=== PATIENT | female | born 1985 | race Caucasian/White ===

== ENCOUNTER 2017-04-03 09:03 | Outpatient (CLI) | payer OTHER ==
--- NOTE | 2017-04-03 15:10 | NM ---
HEPATOBILIARY SCAN: Date: 04/03/17 HISTORY: Right upper quadrant pain. No stones on ultrasound of 09/05/16. RADIOPHARMACEUTICAL: 5.3 mCi technetium-99m mebrofenin injected intravenously. FINDINGS: There is good tracer extraction by the liver with prompt excretion into the biliary tract and small bowel loops and normal filling of the gallbladder. The calculated gallbladder ejection fraction foll owing an oral fatty meal measures 31% (normal greater than 33%). IMPRESSION: Chronic acalculous cholecystitis/gallbladder dyskinesia. POS: [facility]
== END 2017-04-03 09:04 | disposition home or self-care (01) ==
LOC: NM 09:03
PROVIDERS: ATTEND Internal Medicine Gastroenterology
DX: K59.09 Other constipation (principal); K81.1 Chronic cholecystitis; K82.8 Other specified diseases of gallbladder; R10.11 Right upper quadrant pain
CPT/HCPCS: 78227; A9537

== ENCOUNTER 2017-04-26 16:14 | Emergency (ER) | payer OTHER ==
[2017-04-26] MEDS ORDERED: Metoclopramide HCl 10 MG/2 ML VIAL ONE (16:46)
[2017-04-26] MEDS ORDERED: Dexamethasone 4 mg/ml Vial ONE (16:46)
[2017-04-26] MEDS ORDERED: Ketorolac Tromethamine 30 MG/ML VIAL ONE (16:46)
[2017-04-26 16:54] LABS: #Eosinphils 0.2 thou/uL (0.0-0.7); #Monocytes 0.6 thou/uL (0.11-0.59); #Neutrophils 4.2 thou/uL (1.40-6.50); %Basophils 0.5 % (0.0-1.0); %Eosinophils 2.2 % (0.0-10.0); %Monocytes 8.1 % (0.0-10.0); Hematocrit 38.2 % (36.0-47.0); Mean Platelet Volume 7.3 fL (7.4-10.4); Red Blood Cell (RBC) Count 4.27 mill/uL (4.20-5.40)
[2017-04-26 17:14] LABS: Anion Gap 13 mmol/L (10-20); BUN (Urea Nitrogen) 9 mg/dL (7.0-18.7); Calc. Creatinine Clearance 0 mL/min (70-130); Calcium 9.5 mg/dL (7.8-10.44); Carbon Dioxide 26 mmol/L (22-29); Chloride 105 mmol/L (98-107); Estimated GFR-MDRD Greater than 90
== END 2017-04-26 17:54 | disposition home or self-care (01) ==
LOC: ERS 16:14
DX: G43.909 Migraine, unspecified, not intractable, without status migrainosus (principal); J45.909 Unspecified asthma, uncomplicated; I10 Essential (primary) hypertension
CPT/HCPCS: 80048; 85025; 96365; 96375; J1100; J1885; J2765

== ENCOUNTER 2017-05-03 13:56 | Emergency (ER) | payer OTHER ==
[2017-05-03] MEDS ORDERED: Meclizine HCl 25 MG TAB ONE (14:47)
--- NOTE | 2017-05-03 16:25 | CT ---
CT OF BRAIN PERFORMED WITHOUT CONTRAST ENHANCEMENT: Date: 05/03/17 HISTORY: Headache and dizziness. FINDINGS: The ventricular and cisternal system is within normal limits. There are no signs of intracerebral hem orrhage or extra-axial fluid collections. The mastoid air cells and visualized sinuses are clear. IMPRESSION: No acute intracranial abnormalities. POS: [facility]
== END 2017-05-03 16:29 | disposition home or self-care (01) ==
LOC: ERS 13:56
DX: G44.209 Tension-type headache, unspecified, not intractable (principal); F43.9 Reaction to severe stress, unspecified; J45.909 Unspecified asthma, uncomplicated; I10 Essential (primary) hypertension; K58.9 Irritable bowel syndrome, unspecified; Z79.899 Other long term (current) drug therapy
CPT/HCPCS: 70450

== ENCOUNTER 2017-09-17 07:24 | Emergency (ER) | payer OTHER ==
[2017-09-17 09:56] LABS: #Eosinphils 0.2 thou/uL (0.0-0.7); #Lymphocytes 1.8 thou/uL (1.20-3.40); #Monocytes 0.6 thou/uL (0.11-0.59); #Neutrophils 4.2 thou/uL (1.40-6.50); %Basophils 0.4 % (0.0-1.0); %Eosinophils 2.6 % (0.0-10.0); %Lymphocytes 26.7 % (21.0-51.0); %Monocytes 8.5 % (0.0-10.0); %Neutrophils 61.9 % (42.0-75.0); Hemoglobin 12.7 g/dL (12.0-16.0); Mean Corpuscular HGB CONC 34.9 g/dL (32.0-36.0); Mean Corpuscular Hemoglobin 30.8 pg (27.0-31.0); Mean Corpuscular Volume 88.1 fl (81.0-99.0); Platelet Count 212 thou/uL (130-400); RBC Distribution Width 11.2 % (11.5-14.5); Red Blood Cell (RBC) Count 4.13 mill/uL (4.20-5.40); White Blood Cell (WBC) Count 6.8 thou/uL (4.8-10.8)
--- NOTE | 2017-09-17 10:03 | RAD ---
TWO VIEWS OF THE LEFT HIP: COMPARISON: None. HISTORY: Left hip and leg pain. The patient possibly fell in April. FINDINGS: Two views of the left h8ip show no evidence of acute fracture or dislocation. No degenerative change s are seen. No soft tissue swelling is present. IMPRESSION: Unremarkable exam. POS: [facility]
[2017-09-17 10:17] LABS: Anion Gap 10 mmol/L (10-20); BUN (Urea Nitrogen) 10 mg/dL (7.0-18.7); Calc. Creatinine Clearance 0 mL/min (70-130); Calcium 9.2 mg/dL (7.8-10.44); Carbon Dioxide 27 mmol/L (22-29); Chloride 107 mmol/L (98-107); Estimated GFR-MDRD Greater than 90; Glucose 92 mg/dL (70-105); Potassium 3.6 mmol/L (3.5-5.1); Sodium 140 mmol/L (136-145)
[2017-09-17] MEDS ORDERED: Ibuprofen 200 MG TAB ONE (10:52)
--- NOTE | 2017-09-17 10:57 | ULT ---
NONVASCULAR LEFT LOWER EXTREMITY ULTRASOUND: Date: 09/17/17 INDICATION: Painful and palpable abnormality within the left superolateral thigh and hip region for 4-5 months. TECHNIQUE: Escobedo scale and color Doppler images were obtained of the palpable region of interest within the left superolateral thigh and hip region. FINDINGS: The submitted images demonstrate a 3.7 x 3.1 x 1.9 cm poorly defined hypoechoic mass. There is no ext ensive amount of internal vascular flow demonstrated on the Doppler images. No appreciable calcificat ions are evident. There is some heterogeneous echogenicity seen within the lesion itself. IMPRESSION: Poorly characterized hypoechoic mass within the left superolateral aspect of the left thigh. There is no internal vascular flow present; however, image resolution on today's examination is somewhat limi lucia. Differential considerations for this finding include an old resolved hematoma or possibly a soft tissue mass related to a sarcoma. MRI of the left hip with and without contrast is recommended for a dditional characterization. CODE T. POS: [facility]
--- NOTE | 2017-09-17 15:04 | MRI ---
MRI OF THE LEFT HIP WITH AND WITHOUT CONTRAST: INDICATION: Left hip pain and left hip soreness with concern for lesion within the left hip seen on a recent ultr asound dated 09/17/17. FINDINGS: A surface marker was placed in the palpable region of interest. No suspicious mass is evident. The lesion in question in the ultrasound is most likely corresponding to a fat signal intensity lesion me asuring approximately 3 x 4.9 cm consistent with a subcutaneous lipoma. There are no irregular featu res within this area. There is some mild tendinosis involving the left hip gluteus and minimus tendo ns with a small amount of trochanteric bursitis. No iliopsoas bursitis was evident. No joint effusi on is noted. There is some mild degenerative signal seen within the substance of the anterior superi or acetabulum without evidence of definite full-thickness tear. No paralabral cyst is noted. The vi sualized hamstring and rectus femoris origins appear within normal limits. The visualized aspects of the sciatic nerve are normal-appearing. No pathologically enlarged lymph nodes are evident. No abn ormal enhancement is demonstrated. IMPRESSION: 1. The mass seen on the ultrasound examination of the left hip likely reflects a subcutaneous lipoma . No suspicious features are related to this. 2. Mild left gluteus minimus and medias tendonosis and mild trochanteric bursitis. POS: [facility]
== END 2017-09-17 16:10 | disposition home or self-care (01) ==
LOC: ERS 07:24
DX: M70.62 Trochanteric bursitis, left hip (principal); D17.9 Benign lipomatous neoplasm, unspecified; I10 Essential (primary) hypertension; J45.909 Unspecified asthma, uncomplicated; Z79.899 Other long term (current) drug therapy
CPT/HCPCS: 36415; 36416; 76882; 80048; 85025

== ENCOUNTER 2017-10-02 08:46 | Outpatient (CLI) | payer OTHER ==
[2017-10-02 09:09] LABS: #Eosinphils 0.2 thou/uL (0.0-0.7); #Lymphocytes 2.5 thou/uL (1.20-3.40); #Monocytes 0.8 thou/uL (0.11-0.59); #Neutrophils 5.4 thou/uL (1.40-6.50); %Basophils 0.4 % (0.0-1.0); %Eosinophils 1.9 % (0.0-10.0); %Lymphocytes 27.9 % (21.0-51.0); %Monocytes 9.1 % (0.0-10.0); %Neutrophils 60.7 % (42.0-75.0); Hemoglobin 13.1 g/dL (12.0-16.0); Mean Corpuscular HGB CONC 34.9 g/dL (32.0-36.0); Mean Corpuscular Hemoglobin 30.5 pg (27.0-31.0); Mean Corpuscular Volume 87.3 fl (81.0-99.0); Mean Platelet Volume 6.8 fL (7.4-10.4); Platelet Count 222 thou/uL (130-400); RBC Distribution Width 11.1 % (11.5-14.5); Red Blood Cell (RBC) Count 4.29 mill/uL (4.20-5.40); White Blood Cell (WBC) Count 8.9 thou/uL (4.8-10.8)
[2017-10-02 09:30] LABS: Anion Gap 12 mmol/L (10-20); BUN (Urea Nitrogen) 22 mg/dL (7.0-18.7); Calc. Creatinine Clearance 0 mL/min (70-130); Calcium 9.5 mg/dL (7.8-10.44); Carbon Dioxide 27 mmol/L (22-29); Chloride 104 mmol/L (98-107); Estimated GFR-MDRD Greater than 90; Glucose 85 mg/dL (70-105); Potassium 3.6 mmol/L (3.5-5.1); Sodium 139 mmol/L (136-145)
[2017-10-02 09:40] LABS: BHCG - Serum Negative (NEGATIVE); Pregs Control Background? CLEAR/WHITE (CLR/WHITE); Pregs Control Bar Appear? YES (CONTROL BAR)
== END 2017-10-02 08:47 | disposition home or self-care (01) ==
LOC: LABBT 08:46
PROVIDERS: ATTEND Surgery
DX: Z01.812 Encounter for preprocedural laboratory examination (principal); D17.9 Benign lipomatous neoplasm, unspecified
CPT/HCPCS: 80048; 84703; 85025

== ENCOUNTER 2017-10-09 07:36 | Day surgery (SDC) | payer OTHER ==
[2017-10-02 09:04] VITALS: BMI 36.3
[2017-10-09] MEDS ORDERED: Fentanyl 100 MCG/2 ML VIAL ONE ×2 (08:11→10:45)
[2017-10-09] MEDS ORDERED: Promethazine HCl 25 MG/ML VIAL ONE (08:12)
[2017-10-09] MEDS ORDERED: Midazolam HCl 2 mg/2 ml Vial ONE (08:13)
[2017-10-09] MEDS ORDERED: Levofloxacin 500 mg/D5W 100 ml Premix Bag ONE (08:13)
[2017-10-09] MEDS ORDERED: Lidocaine 2% 10 ML INJ ONE (08:16)
[2017-10-09] MEDS ORDERED: Bupivacaine/Epinephrine 0.25% 30 ML VIAL ONE (08:16)
[2017-10-09] MEDS ORDERED: Bacitracin Zinc Ointment 30 gm TUBE ONE (08:16)
[2017-10-09] MEDS ORDERED: Morphine 4 MG/ML VIAL ONE (11:15)
[2017-10-09] MEDS ORDERED: HYDROcodone/Acetaminophen 5/325 mg Tablet ONE (11:45)
[2017-10-09] MEDS ORDERED: Lidocaine 1% PF 5 ML VIAL ONE (16:17)
[2017-10-09] MEDS ORDERED: PROPOFOL 200 MG/20 ML VIAL ONE (16:17)
[2017-10-09] MEDS ORDERED: ePHEDrine/0.9% NaCl/PF SYRINGE 50 mg/10 ml ONE (16:17)
[2017-10-09] MEDS ORDERED: Dexamethasone 20 MG/5 ML VIAL ONE (16:17)
--- NOTE | 2017-10-12 15:49 | PDOC.OP ---
Operative Note - Operative Note Operative Note: PROCEDURE: Excision of left hip lipoma DATE OF PROCEDURE: 10/08/2017 SURGEON: Luda Zaragoza M.D. PREOPERATIVE DIAGNOSES: Left hip lipoma POSTOPERATIVE DIAGNOSIS: Left hip lipoma HISTORY: Patient has a slowly growing mass on her left hip which is consistent with lipoma by preoperative imaging. She wishes to have it excised for symptomatic and diagnostic purposes. PROCEDURE IN DETAIL: After informed consent was obtained and appropriate preoperative antibiotics administered the patient was taken to the operating room where she was placed in supine position and anesthesia was administered. She was then positioned in the right lateral decubitus position and the location of the mass deep in the subcutaneous tissues confirmed by ultrasound. Local anesthesia was infused circumferentially for a field block and a longitudinal incision was made over the mass in the long axis. Dissection was carried down through the subcutaneous mass to a fatty growth which was encapsulated and had an appearance consistent with lipoma. This was dissected free circumferentially and off of the underlying greater trochanter and fascia. It was excised in its entirety and marked for orientation. Dimensions were 10 cm x 6 cm x 4 cm. Hemostasis was obtained by Bovie electrocautery. The wound was irrigated and hemostasis verified. Subcutaneous tissues were then reapproximated with multiple layers of 3-0 Monocryl sutures. The skin was then closed with a running 4-0 subcuticular Monocryl suture. Dermabond dressings were placed and once this was dry a pressure dressing was placed. The patient was then placed back in the supine position and extubated and taken to the recovery room in good condition. Estimated blood loss was minimal. There were no complications. Specimen is left hip lipoma.
== END 2017-10-09 13:00 | disposition home or self-care (01) ==
LOC: SDC 07:36
PROVIDERS: ATTEND Surgery
PROC: 0JBC0ZZ Excision of Pelvic Region Subcutaneous Tissue and Fascia, Open Approach (ICD-10-PCS; principal; 2017-10-09)
DX: D17.1 Benign lipomatous neoplasm of skin and subcutaneous tissue of trunk (principal); J45.909 Unspecified asthma, uncomplicated; Z88.0 Allergy status to penicillin; Z88.5 Allergy status to narcotic agent; Z91.040 Latex allergy status; Z98.890 Other specified postprocedural states
CPT/HCPCS: 88304; 96374; J1100; J1956; J2001; J2250; J2270; J2550; J2704; J3010

== ENCOUNTER 2018-01-22 21:52 | Emergency (ER) | payer OTHER ==
[2018-01-22 23:00] LABS: #Eosinphils 0.3 thou/uL (0.0-0.7); #Monocytes 0.5 thou/uL (0.11-0.59); #Neutrophils 4.9 thou/uL (1.40-6.50); %Basophils 0.4 % (0.0-1.0); %Eosinophils 3.3 % (0.0-10.0); %Neutrophils 63.4 % (42.0-75.0); Hemoglobin 13.4 g/dL (12.0-16.0); Mean Corpuscular Hemoglobin 31.3 pg (27.0-31.0); Mean Corpuscular Volume 86.9 fL (78.0-98.0); Platelet Count 207 thou/uL (130-400); RBC Distribution Width 11.4 % (11.5-14.5); Red Blood Cell (RBC) Count 4.29 mill/uL (4.20-5.40); White Blood Cell (WBC) Count 7.7 thou/uL (4.8-10.8)
--- NOTE | 2018-01-22 23:09 | RAD ---
TWO VIEWS CHEST: 01/22/18 COMPARISON: 11/18/16 HISTORY: Short of breath. FINDINGS: The heart and mediastinal contours are stable. Prominent epicardial fat pad noted in the right cardio phrenic angle, stable. No pneumothorax, pleural fluid, focal consolidation or alveolar edema. IMPRESSION: No acute findings - stable appearance of the chest. POS: [facility]
[2018-01-22 23:17] LABS: Glucose 103 mg/dL (70-105)
[2018-01-22 23:22] LABS: ALT (SGPT) 16 U/L (8-55); AST (SGOT) 11 U/L (5-34); Albumin 4.6 g/dL (3.5-5.0); Alkaline Phosphatase 82 U/L (40-150); Anion Gap 12 mmol/L (10-20); BUN (Urea Nitrogen) 10 mg/dL (7.0-18.7); Bilirubin, Total 0.5 mg/dL (0.2-1.2); Calc. Creatinine Clearance 0 mL/min (70-130); Calcium 9.5 mg/dL (7.8-10.44); Carbon Dioxide 26 mmol/L (22-29); Chloride 106 mmol/L (98-107); Estimated GFR-MDRD 84; Globulin 3.1 g/dL (2.4-3.5); Potassium 3.7 mmol/L (3.5-5.1); Protein, Total 7.7 g/dL (6.0-8.3); Sodium 140 mmol/L (136-145)
[2018-01-22 23:25] LABS: CKMB 0.6 ng/mL (0-6.6); Troponin I Less than 0.010 ng/mL (< 0.028)
[2018-01-23] MEDS ORDERED: Ibuprofen 200 MG TAB ONE (00:04)
[2018-01-23] MEDS ORDERED: predniSONE 20 MG TAB ONE (00:04)
== END 2018-01-23 00:48 | disposition home or self-care (01) ==
LOC: ERS 21:52
DX: J45.901 Unspecified asthma with (acute) exacerbation (principal); I10 Essential (primary) hypertension; Z79.899 Other long term (current) drug therapy
CPT/HCPCS: 36415; 71046; 80053; 82553; 84484; 85025; 85379; 93005; J7506; J7620

== ENCOUNTER 2018-08-21 14:36 | Emergency (ER) | payer OTHER ==
[2018-08-21] MEDS ORDERED: Dexamethasone 10 MG/ML VIAL ONE (15:27)
== END 2018-08-21 16:22 | disposition home or self-care (01) ==
LOC: ERS 14:36
DX: J02.9 Acute pharyngitis, unspecified (principal); H60.92 Unspecified otitis externa, left ear; I10 Essential (primary) hypertension; J45.909 Unspecified asthma, uncomplicated
CPT/HCPCS: 87081; 87430; 99283; J1100

== ENCOUNTER 2018-11-17 14:33 | Emergency (ER) | payer OTHER | END 2018-11-17 14:55 | disposition home or self-care (01) | LOC: ERS 14:33 | DX: Z20.3 Contact with and (suspected) exposure to rabies (principal) | CPT/HCPCS: 99281 ==

== ENCOUNTER 2021-03-16 23:23 | Emergency (ER) | payer OTHER | END 2021-03-17 00:09 | disposition home or self-care (01) | LOC: ERS 23:23 | DX: U07.1 COVID-19 (principal); I10 Essential (primary) hypertension; J45.909 Unspecified asthma, uncomplicated; F17.290 Nicotine dependence, other tobacco product, uncomplicated | CPT/HCPCS: 99281 ==

== ENCOUNTER 2021-07-19 14:51 | Outpatient (CLI) | payer OTHER ==
[2021-07-19 16:32] LABS: BHCG - Serum Negative (NEGATIVE); Pregs Control Background? CLEAR/WHITE (CLR/WHITE); Pregs Control Bar Appear? YES (CONTROL BAR)
[2021-07-20 00:27] LABS: SARS-CoV-2 PCR by NAA DETECTED (NotDetected)
== END 2021-07-19 14:52 | disposition home or self-care (01) ==
LOC: LABBT 14:51
PROVIDERS: ATTEND Surgery Surgery of the Hand
DX: U07.1 COVID-19 (principal); Z20.822 Contact with and (suspected) exposure to COVID-19
CPT/HCPCS: 84703; U0003; U0005

== ENCOUNTER 2021-12-04 23:54 | Emergency (ER) | payer OTHER ==
[2021-12-05] MEDS ORDERED: Lorazepam 1 MG TAB ONE (01:42)
[2021-12-05 01:59] LABS: #Eosinphils 0.2 thou/uL (0.0-0.7); #Lymphocytes 1.6 thou/uL (1.20-3.40); #Monocytes 0.6 thou/uL (0.11-0.59); #Neutrophils 12.4 thou/uL (1.40-6.50); %Basophils 0.2 % (0.0-1.0); %Eosinophils 1.6 % (0.0-10.0); %Lymphocytes 10.8 % (21.0-51.0); %Monocytes 3.9 % (0.0-10.0); %Neutrophils 83.5 % (42.0-75.0); Hemoglobin 13.6 g/dL (12.0-16.0); Mean Corpuscular HGB CONC 34.8 g/dL (32.0-36.0); Mean Corpuscular Hemoglobin 31.3 pg (27.0-31.0); Mean Corpuscular Volume 90.1 fL (78.0-98.0); Mean Platelet Volume 7.1 fL (7.4-10.4); Platelet Count 248 thou/uL (130-400); RBC Distribution Width 11.6 % (11.5-14.5); Red Blood Cell (RBC) Count 4.34 mill/uL (4.20-5.40); White Blood Cell (WBC) Count 14.9 thou/uL (4.8-10.8)
[2021-12-05 02:10] LABS: BHCG - Serum Negative (NEGATIVE); Pregs Control Background? CLEAR/WHITE (CLR/WHITE); Pregs Control Bar Appear? YES (CONTROL BAR)
[2021-12-05 02:15] LABS: ALT (SGPT) 18 U/L (8-55); AST (SGOT) 12 U/L (5-34); Albumin 4.4 g/dL (3.5-5.0); Alkaline Phosphatase 80 U/L (40-110); Anion Gap 14 mmol/L (10-20); BUN (Urea Nitrogen) 12 mg/dL (7.0-18.7); Bilirubin, Total 0.4 mg/dL (0.2-1.2); CK (CPK) 26 U/L (29-168); Calc. Creatinine Clearance 0 mL/min (70-130); Calcium 9.7 mg/dL (7.8-10.44); Carbon Dioxide 24 mmol/L (22-29); Chloride 105 mmol/L (98-107); Globulin 3.1 g/dL (2.4-3.5); Glucose 163 mg/dL (70-105); Potassium 4.5 mmol/L (3.5-5.1); Protein, Total 7.5 g/dL (6.0-8.3); Sodium 138 mmol/L (136-145)
== END 2021-12-05 03:16 | disposition home or self-care (01) ==
LOC: ERS 23:54
DX: F41.1 Generalized anxiety disorder (principal); I10 Essential (primary) hypertension; Z87.891 Personal history of nicotine dependence; Z79.899 Other long term (current) drug therapy
CPT/HCPCS: 36415; 71045; 80053; 82550; 83735; 84443; 84484; 84703; 85025; 93005

== ENCOUNTER 2022-06-25 13:14 | Outpatient (CLI) | payer OTHER | END 2022-06-25 13:15 | disposition home or self-care (01) | LOC: BICMAMMO 13:14 | PROVIDERS: ATTEND Physician Assistant | DX: N63.25 Unspecified lump in the left breast, overlapping quadrants (principal) | CPT/HCPCS: 77066; G0279 ==

== ENCOUNTER 2023-06-13 14:29 | Emergency (ER) | payer SELFPAY ==
[2023-06-13 15:22] LABS: #Eosinphils 0.2 thou/uL (0.0-0.7); #Monocytes 0.5 thou/uL (0.11-0.59); #Neutrophils 4.1 thou/uL (1.40-6.50); %Basophils 0.4 % (0.0-1.0); %Eosinophils 2.9 % (0.0-10.0); %Lymphocytes 29.1 % (21.0-51.0); %Monocytes 7.4 % (0.0-10.0); %Neutrophils 59.9 % (42.0-75.0); Hematocrit 37.3 % (36.0-47.0); Hemoglobin 12.6 g/dL (12.0-16.0); Mean Corpuscular HGB CONC 33.8 g/dL (32.0-36.0); Mean Corpuscular Hemoglobin 30.6 pg (27.0-31.0); Mean Corpuscular Volume 90.5 fl (78.0-98.0); Mean Platelet Volume 9.5 fL (7.4-10.4); Platelet Count 238 10x3/uL (130-400); Red Blood Cell (RBC) Count 4.12 mill/uL (4.20-5.40); White Blood Cell (WBC) Count 6.9 10x3/uL (4.8-10.8)
[2023-06-13 15:31] LABS: BHCG - Serum Negative (NEGATIVE); Pregs Control Background? CLEAR/WHITE (CLR/WHITE); Pregs Control Bar Appear? YES (CONTROL BAR)
[2023-06-13 15:41] LABS: ALT (SGPT) 19 U/L (8-55); AST (SGOT) 13 U/L (5-34); Albumin 4.2 g/dL (3.5-5.0); Alkaline Phosphatase 75 U/L (40-110); Anion Gap 10 mmol/L (10-20); BUN (Urea Nitrogen) 9 mg/dL (7.0-18.7); Bilirubin, Total 0.6 mg/dL (0.2-1.2); Calc. Creatinine Clearance 0 mL/min (70-130); Calcium 9.1 mg/dL (7.8-10.44); Carbon Dioxide 27 mmol/L (22-29); Chloride 104 mmol/L (98-107); Estimated GFR 105; Globulin 2.9 g/dL (2.4-3.5); Glucose 90 mg/dL (70-105); Lipase 18 U/L (8-78); Potassium 4.1 mmol/L (3.5-5.1); Protein, Total 7.1 g/dL (6.0-8.3); Sodium 137 mmol/L (136-145)
[2023-06-13 16:05] LABS: Bilirubin Negative (Negative); Blood, Urine Negative (Negative); CAUTI Indications for Culture Pelvic or flank pain; Clarity Clear (Clear); Glucose, Urine (Dipstick) Normal (Negative); Ketone, Urine Negative (Negative); Leukocyte Negative Leu/uL (Negative); Nitrite Negative (Negative); Protein, Urine (Dipstick) Negative (Neg-Trace); RBC/HPF 0-3 HPF (0-3); Specific Gravity, Urine 1.022 (1.002-1.036); Squamous Epithelial 0-3 HPF (0-3); Urobilinogen Normal mg/dL (Less than 2); WBC/HPF 0-3 HPF (0-3)
[2023-06-13 16:20] LABS: Bacteria/HPF 1+ HPF (None Seen)
[2023-06-13 16:21] LABS: Urine Culture Reflex No No
[2023-06-13] MEDS ORDERED: Ondansetron ODT 4 MG TAB ONE (16:36)
== END 2023-06-13 17:14 | disposition home or self-care (01) ==
LOC: ERS 14:29
DX: R10.11 Right upper quadrant pain (principal); R11.2 Nausea with vomiting, unspecified; I10 Essential (primary) hypertension; J45.909 Unspecified asthma, uncomplicated; Z87.891 Personal history of nicotine dependence; Z79.899 Other long term (current) drug therapy
CPT/HCPCS: 36415; 76705; 80053; 81001; 83690; 84703; 85025; Q0162